=== PATIENT | female | born 2000 | race Caucasian/White ===

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

== ENCOUNTER 2018-03-24 11:56 | Day surgery (SDC) | payer OTHER ==
[~2018-03-24 11:56] MED LIST: LIDOCAINE 2% INJ 100 MG/5 ML SDV (FOR ANES.) As Ordered; NS 1,000 ML IV; PROPOFOL 200 MG/20 ML VIAL As Ordered
== END 2018-03-24 13:58 | disposition home or self-care (01) ==
LOC: M OPP 11:56
DX: R19.4 Change in bowel habit (principal); K30 Functional dyspepsia; K58.9 Irritable bowel syndrome, unspecified; L30.9 Dermatitis, unspecified; G62.9 Polyneuropathy, unspecified; Z86.69 Personal history of other diseases of the nervous system and sense organs; Z98.890 Other specified postprocedural states; Z79.899 Other long term (current) drug therapy
CPT/HCPCS: 45378